=== PATIENT | male | born 1945 | race Caucasian/White ===

== ENCOUNTER → 2016-10-01 07:08 | Outpatient (CLI) | payer MEDICARE, MEDICAID ==
[2016-10-01 08:07] LABS: ALBUMIN 4.1 g/dL (3.4-5.0); ANION GAP 13.1 mmol/L (8-16); BILIRUBIN - TOTAL 0.45 mg/dL (0.2-1.3); CALCIUM 9.1 mg/dL (8.5-10.1); CARBON DIOXIDE 26.1 mmol/L (21.0-32.0); CREATININE - SERUM 1.2 mg/dL (0.6-1.3); POTASSIUM - SERUM 4.2 mmol/L (3.5-5.1)
[2016-10-02 09:15] LABS: FOLATE (FOLIC ACID) - SERUM >20.0 ng/mL (>3.0)
== END | disposition home or self-care (01) ==
LOC: D.LAB 07:08 → D.CT 09:00
PROVIDERS: Internal Medicine Gastroenterology
DX: K85.90 Acute pancreatitis without necrosis or infection, unspecified (principal); R63.4 Abnormal weight loss; R10.9 Unspecified abdominal pain

== ENCOUNTER → 2017-03-18 07:03 | Outpatient (CLI) | payer MEDICARE ==
[2017-03-18 07:52] LABS: BASOPHILS 0.3 % (0-2); EOSINOPHILS 1.7 % (0-7); HEMATOCRIT 37.8 % (42.0-54.0); HEMOGLOBIN 12.6 g/dL (13.5-17.5); IMMATURE GRANULOCYTES 0.2 % (0-5); LYMPHOCYTES 23.5 % (15-50); MCH 32.2 pg (26.0-34.0); MCHC 33.3 g/dL (31.0-37.0); MCV 96.7 fL (80.0-100.0); MEAN PLATELET VOLUME 9.7 fL (7.4-10.4); MONOCYTES 14.7 % (2-11); NEUTROPHILS 59.6 % (40-80); PLATELET COUNT 180 10x3/uL (130-400); RBC 3.91 10x6/uL (4.20-6.10); RDW 13.5 % (11.5-14.5); WBC 6.5 10x3/uL (4.8-10.8)
[2017-03-18 08:06] LABS: ALBUMIN 3.8 g/dL (3.4-5.0); ANION GAP 12.9 mmol/L (8-16); BILIRUBIN - TOTAL 0.5 mg/dL (0.2-1.3); CALCIUM 8.8 mg/dL (8.5-10.1); CARBON DIOXIDE 27.3 mmol/L (21.0-32.0); CREATININE - SERUM 1.2 mg/dL (0.6-1.3); POTASSIUM - SERUM 4.2 mmol/L (3.5-5.1); PROTEIN - SERUM 7.7 g/dL (6.4-8.2)
== END | disposition home or self-care (01) ==
LOC: D.US 07:03
PROVIDERS: Internal Medicine Gastroenterology
DX: R10.9 Unspecified abdominal pain (principal); K85.90 Acute pancreatitis without necrosis or infection, unspecified

== ENCOUNTER → 2017-07-05 14:05 | Outpatient (CLI) | payer MEDICARE ==
[~2017-07-05 14:05] MED LIST: ASPIRIN81 MG PO; CREON DR 6,0001 EACH PO; Pancrease 5000,17,00 PO; TOPROL XL25 MG PO; ULTRAM50 MG PO
[2017-07-09 09:44] VITALS: BMI 25.5
== END | disposition home or self-care (01) ==
LOC: D.CT 14:05
DX: I65.23 Occlusion and stenosis of bilateral carotid arteries (principal)

== ENCOUNTER 2017-07-08 07:30 | Inpatient (IN) | payer MEDICARE ==
[2017-07-07 14:24] LABS: HEMATOCRIT 42.5 % (42.0-54.0); HEMOGLOBIN 14.3 g/dL (13.5-17.5); MCH 32.4 pg (26.0-34.0); MCHC 33.6 g/dL (31.0-37.0); MCV 96.4 fL (80.0-100.0); MEAN PLATELET VOLUME 9.7 fL (7.4-10.4); RBC 4.41 10x6/uL (4.20-6.10); RDW 13.2 % (11.5-14.5)
[2017-07-07 14:30] LABS: APPEARANCE CLEAR (CLEAR); BILIRUBIN NEGATIVE (NEGATIVE); COLOR YELLOW (YELLOW); GLUCOSE NEGATIVE (NEGATIVE); KETONE NEGATIVE (NEGATIVE); NITRITE NEGATIVE (NEGATIVE); PROTEIN NEGATIVE (NEGATIVE); SPECIFIC GRAVITY 1.015 (1.005-1.020); UROBILINOGEN NORMAL (NORMAL)
[2017-07-07 14:42] LABS: APTT 27.1 SECONDS (22.8-39.4); INR 0.99 (0.85-1.17); PROTIME 12.7 SECONDS (11.6-15.0)
[2017-07-07 14:53] LABS: ALBUMIN 4.5 g/dL (3.4-5.0); ANION GAP 12.9 mmol/L (8-16); BILIRUBIN - TOTAL 0.41 mg/dL (0.2-1.3); CALCIUM 9.5 mg/dL (8.5-10.1); CARBON DIOXIDE 28.5 mmol/L (21.0-32.0); CREATININE - SERUM 1.2 mg/dL (0.6-1.3); POTASSIUM - SERUM 4.4 mmol/L (3.5-5.1); PROTEIN - SERUM 8.7 g/dL (6.4-8.2)
[~2017-07-08] VITALS: Ht 172.7 cm; Wt 76.2 kg
[2017-07-08] VITALS (25 sets, daily range): BP systolic 102–157; BP diastolic 44–81; BMI 25.6
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
[2017-07-08] MEDS ORDERED: CREON DR 6,0001 EACH PO (11:45)
[2017-07-08] MEDS ORDERED: ULTRAM50 MG PO (11:46)
[2017-07-08 11:49] LABS: BASOPHILS 0.3 % (0-2); EOSINOPHILS 2.8 % (0-7); HEMATOCRIT 38.3 % (42.0-54.0); HEMOGLOBIN 12.9 g/dL (13.5-17.5); IMMATURE GRANULOCYTES 0.4 % (0-5); LYMPHOCYTES 28.9 % (15-50); MCH 32.7 pg (26.0-34.0); MCHC 33.7 g/dL (31.0-37.0); MEAN PLATELET VOLUME 9.9 fL (7.4-10.4); MONOCYTES 5.7 % (2-11); NEUTROPHILS 61.9 % (40-80); PLATELET COUNT 191 10x3/uL (130-400); RBC 3.95 10x6/uL (4.20-6.10); RDW 13.2 % (11.5-14.5); WBC 7.1 10x3/uL (4.8-10.8)
[2017-07-08 11:56] LABS: APTT 26.8 SECONDS (22.8-39.4); INR 1.11 (0.85-1.17); PROTIME 13.9 SECONDS (11.6-15.0)
[2017-07-08 12:10] LABS: CALC OSMOLALITY 275 mosm/kg (275-300); CARBON DIOXIDE 27.4 mmol/L (21.0-32.0); CHLORIDE - SERUM 104 mmol/L (98-107); CKMB 2.2 U/L (0.0-3.6); CREATINE KINASE 144 UL (21-232); CREATININE - SERUM 1.3 mg/dL (0.6-1.3); GLUCOSE 125 mg/dL (74-106); POTASSIUM - SERUM 4.5 mmol/L (3.5-5.1); SODIUM 137 mmol/L (136-145); TROPONIN-I < 0.017 ng/mL (0.000-0.060); UREA NITROGEN 16 mg/dL (7-18); eGFR NON AFRICAN AMERICAN 57 mL/min (90-120)
[2017-07-09] VITALS (48 sets, daily range): BP systolic 114–149; BP diastolic 42–81; Ht 172.7 cm; Wt 76.2 kg
[2017-07-09] MEDS ORDERED: ASPIRIN81 MG PO (18:12)
[2017-07-09] MEDS ORDERED: TOPROL XL25 MG PO (18:14)
[2017-07-10] VITALS (11 sets, daily range): BP systolic 131–149; BP diastolic 52–86
[2017-07-10] MEDS ORDERED: Pancrease 5000,17,00 PO (10:13)
== END 2017-07-10 12:00 | disposition home or self-care (01) | DRG 39 ==
LOC: D.SDCHOLD 07:30 → D.CVICU 10:20 → D.SDCHOLD 10:20 → D.CVICU 16:24
PROVIDERS: Anesthesiology; Thoracic Surgery (Cardiothoracic Vascular Surgery)
PROC: 03UH0JZ Supplement Right Common Carotid Artery with Synthetic Substitute, Open Approach (ICD-10-PCS; 2017-07-08)
PROC: 03CH0ZZ Extirpation of Matter from Right Common Carotid Artery, Open Approach (ICD-10-PCS; principal; 2017-07-08 13:25)
DX: I65.23 Occlusion and stenosis of bilateral carotid arteries (principal); I10 Essential (primary) hypertension; I69.328 Other speech and language deficits following cerebral infarction

== ENCOUNTER → 2018-01-18 13:16 | Outpatient (CLI) | payer MEDICARE ==
[2017-07-09 09:44] VITALS: BMI 25.5
== END | disposition home or self-care (01) ==
LOC: D.US 13:16
DX: I65.23 Occlusion and stenosis of bilateral carotid arteries (principal)

== ENCOUNTER → 2018-01-24 09:01 | Outpatient (CLI) | payer MEDICARE ==
[2017-07-09 09:44] VITALS: BMI 25.5
== END | disposition home or self-care (01) ==
LOC: D.CT 09:01 → D.US 09:30
DX: I65.23 Occlusion and stenosis of bilateral carotid arteries (principal)

== ENCOUNTER → 2018-02-21 06:30 | Outpatient (CLI) | payer MEDICARE ==
[2017-07-09 09:44] VITALS: BMI 25.5
== END | disposition home or self-care (01) ==
LOC: D.US 06:30
DX: K85.90 Acute pancreatitis without necrosis or infection, unspecified (principal)

== ENCOUNTER → 2018-03-25 07:11 | Outpatient (CLI) | payer MEDICARE ==
[2017-07-09 09:44] VITALS: BMI 25.5
== END | disposition home or self-care (01) ==
LOC: D.NM 07:11
DX: R10.9 Unspecified abdominal pain (principal)

== ENCOUNTER → 2018-07-15 12:59 | Outpatient (CLI) | payer MEDICARE ==
[2017-07-09 09:44] VITALS: BMI 25.5
== END | disposition home or self-care (01) ==
LOC: D.CT 12:59
PROVIDERS: ATTEND Thoracic Surgery (Cardiothoracic Vascular Surgery)
DX: I65.23 Occlusion and stenosis of bilateral carotid arteries (principal)

== ENCOUNTER → 2019-02-20 08:31 | Outpatient (CLI) | payer MEDICARE ==
[2017-07-09 09:44] VITALS: BMI 25.5
== END | disposition home or self-care (01) ==
LOC: D.CT 01-26 10:00
PROVIDERS: ATTEND Thoracic Surgery (Cardiothoracic Vascular Surgery)
DX: I65.29 Occlusion and stenosis of unspecified carotid artery (principal)